=== PATIENT | female | born 1950 | race Caucasian/White ===

== ENCOUNTER → 2022-08-03 | Outpatient (CLI) | payer OTHER ==
[~2022-08-03] MED LIST: ASCO500 PO; Amlodipine Bes2.5 MG PO; Aspirin EC81 MG PO; B COMPLEX-FOLI1 EACH PO; COENZYME Q10100 MG PO; CRANBERRY450 M1 PO; Calcium + Vita1 EACH PO; LOSARTAN POTAS100 MG PO; MELA3 PO; METO25ER PO; MULTIVITAMINS1 EAC3 PO; Omega-31000 MG PO; Zocor40 MG PO; [UNRECOGNIZED DRUG - OTHER] PO
[2022-08-05 16:07] LABS: SJOGREN'S ANTI-SS-A <0.2 AI (0.0-0.9); SJOGREN'S ANTI-SS-B <0.2 AI (0.0-0.9)
== END ==
LOC: LAB SHORT 16:27 → LAB 16:27
PROVIDERS: Physician Assistant
DX: H04.129 Dry eye syndrome of unspecified lacrimal gland (principal); R68.2 Dry mouth, unspecified
CPT/HCPCS: 86235